=== PATIENT | female | born 1985 | race Caucasian/White ===

== ENCOUNTER 2020-03-24 14:14 | Emergency (ER) | payer MEDICAID, OTHER ==
[~2020-03-24] VITALS: Ht 157.5 cm; Wt 40.0 kg
[2020-03-24] MEDS ORDERED: SODIUM CHLORIDE 0.9% 1,000 ML IV ONE ×2 (15:30→17:00)
[2020-03-24] MEDS ORDERED: LEVETIRACETAM 500MG PREMIX 100 ML IV ONE (15:30)
[2020-03-24] MEDS ORDERED: LEVETIRACETAM 500 MG in SODIUM CHLORIDE 0.9% 100 ML IV SCH (15:45)
[2020-03-24] MEDS ORDERED: LEVETIRACETAM 1000MG PREMIX 100 ML IV NR (16:00)
[2020-03-24 16:24] LABS: BASOPHILS % 0.7 % (0.0-2.0); EOSINOPHILS % 1.6 % (0.0-5.0); HEMATOCRIT. 38.3 % (36.0-48.0); HEMOGLOBIN. 12.7 g/dL (12.0-16.0); LYMPHOCYTES % 24.2 % (20.0-50.0); MEAN CORPUSCULAR HEMOGLOBIN 29.5 pg (28.0-32.0); MEAN PLATELET VOLUME 8.9 fl (7.4-10.4); MONOCYTES % 7.6 % (2.0-8.0); NEUTROPHILS % 65.9 % (40.0-76.0); PLATELET 181 x1000/uL (130-400); RED CELL DISTRIBUTION WIDTH 14.5 % (11.6-14.6)
[2020-03-24 16:30] LABS: CHLORIDE 110 mEq/L (98-107)
[2020-03-24 16:45] LABS: CARBAMAZEPINE < 0.5 ug/mL (4-12); PHENOBARBITAL < 2.1 ug/mL (15.0-40.0)
[2020-03-24] MEDS ORDERED: SODIUM CHLORIDE 0.9% 1,000 ML IV NR (17:00)
[2020-03-24 19:38] VITALS: BP 108/74
== END 2020-03-24 19:59 | disposition home or self-care (01) ==
LOC: ER 14:22
DX: G40.909 Epilepsy, unspecified, not intractable, without status epilepticus (principal); I49.9 Cardiac arrhythmia, unspecified; S00.83XA Contusion of other part of head, initial encounter; X58.XXXA Exposure to other specified factors, initial encounter; Y93.89 Activity, other specified; Y92.018 Other place in single-family (private) house as the place of occurrence of the external cause
CPT/HCPCS: 36415; 70450; 80053; 80156; 80165; 80184; 80185; 82962; 85025; 93005; 96361; 96365; 99285; J1953; J7030; J7050